=== PATIENT | male | born 1945 | race Caucasian/White ===

== ENCOUNTER 2021-03-13 11:02 | Emergency (ER) | payer MEDICARE ==
[~2021-03-13] VITALS: Ht 170.2 cm; Wt 111.0 kg
--- NOTE | 2021-03-13 11:29 | PHYS DOC ---
Past History Additional Past Medical Histor: obesity, lymphedema. R shoulder dislocation, urinary reten/BPH/montano Past Surgical History: Other Additional Past Surgical Histo: cataracts, shoulder surgery General Adult EDM: Chief Complaint: PENIS PROBLEM HPI: HPI: 75-year-old male [facility]. The patient has a chronic indwelling Montano catheter and an existing chronic wound of the penis. It has been bothering him more lately and he was complaining about it today so they called EMS. Patient tells me that he sometimes gets xerogel and this typically helps with the pain. He does not member the last time he had that. He is unable to walk and does not move his legs at baseline. He does not remember the last time his catheter was changed. He has no other complaints at this time. Review of Systems: Review of Systems: Constitutional: Denies fever or chills Eyes: Denies change in visual acuity HENT: Denies nasal congestion or sore throat Respiratory: Denies cough or shortness of breath Cardiovascular: Denies chest pain or edema GI: Denies abdominal pain, nausea, vomiting, bloody stools or diarrhea : Penis pain Musculoskeletal: Denies back pain or joint pain Integument: Denies rash Neurologic: Denies headache, focal weakness or sensory changes Endocrine: Denies polyuria or polydipsia Lymphatic: Denies swollen glands Psychiatric: Denies depression or anxiety Allergies: Allergies: Allergies Coded Allergies Type Severity Reaction Last Updated Verified No Known Drug Allergies 03/13/21 No Physical Exam: PE: Constitutional: Well developed, well nourished, no acute distress, non-toxic appearance. [] HENT: Normocephalic, atraumatic, bilateral external ears normal, oropharynx moist, no oral exudates, nose normal. [] Eyes: PERRLA, EOMI, conjunctiva normal, no discharge. [] Neck: Normal range of motion, no tenderness, supple, no stridor. [] Cardiovascular:Heart rate regular rhythm, no murmur [] Lungs & Thorax: Bilateral breath sounds clear to auscultation [] Abdomen: Bowel sounds normal, soft, no tenderness, no masses, no pulsatile masses. [] Skin: Warm, dry, no erythema, no rash. [] Back: No tenderness, no CVA tenderness. [] Extremities: No tenderness, no cyanosis, no clubbing, ROM intact, no edema. [] Neurologic: Alert and oriented X 3, normal motor function, normal sensory function, no focal deficits noted. [] Psychologic: Affect normal, judgement normal, mood normal. : Deformed, incomplete penis with 5 mm raw area where the catheter to place against the side of the urethra. [] Current Patient Data: Vital Signs: Vital Signs Date Time Temp Pulse Resp B/P (MAP) Pulse Ox O2 Delivery O2 Flow Rate FiO2 03/13/21 11:08 98.5 86 18 140/89 (106) 96 EKG: EKG: [] Radiology/Procedures: Radiology/Procedures: [] Heart Score: C/O Chest Pain: N/A Risk Factors: Risk Factors: DM, Current or recent (<one month) smoker, HTN, HLP, family history of CAD, obesity. Risk Scores: Score 0 - 3: 2.5% MACE over next 6 weeks - Discharge Home Score 4 - 6: 20.3% MACE over next 6 weeks - Admit for Clinical Observation Score 7 - 10: 72.7% MACE over next 6 weeks - Early Invasive Strategies Course & Med Decision Making: Course & Med Decision Making Pertinent Labs and Imaging studies reviewed. (See chart for details) We will try Urojet lidocaine gel as well as barrier cream for the area of rawness. UA is pending. Urinalysis is positive for nitrate but few bacteria. Given his indwelling catheter will wait for culture. I would not treat him at this time. We did treat the patient's symptoms and adjusted the location of his catheter so that he is not resting on the same area. He is stable for discharge at this time. [] Dragon Disclaimer: Dragon Disclaimer: This electronic medical record was generated, in whole or in part, using a voice recognition dictation system. Departure Departure: Impression: Primary Impression: Penis pain Additional Impression: Montano catheter problem Disposition: HOME / SELF CARE / HOMELESS Condition: IMPROVED Patient Instructions: Montano Catheter Care, Adult CRUZ HARDING DO Mar 13, 2021 11:29
[2021-03-13] MEDS ORDERED: LIDOCAINE 2% JELLY 6ML IN APPLICATOR. MM ONE (11:45)
[2021-03-13 12:27] LABS: AMORPHOUS SEDIMENT,UR PRESENT /HPF; BACTERIA,URINE FEW /HPF (0-FEW); BILIRUBIN,URINE NEG (NEG); CLARITY,URINE CLEAR; COLOR,URINE YELLOW; GLUCOSE,URINE NEG (NEG); SQUAMOUS EPITHELIAL CELL,UR OCC /LPF; UROBILINOGEN,URINE 0.2 mg/dL (0.2 mg/dL)
[2021-03-13 12:28] LABS: NITRITE,URINE POS (NEG)
[2021-03-13 13:00] VITALS: BP 136/76
== END 2021-03-13 16:55 | disposition home or self-care (01) ==
LOC: ER 11:02
DX: T83.091A Other mechanical complication of indwelling urethral catheter, initial encounter (principal); N48.89 Other specified disorders of penis
CPT/HCPCS: 51702; 81001; 87086; 99284-25

== ENCOUNTER 2021-07-17 16:22 | Emergency (ER) | payer MEDICARE ==
[~2021-07-17] VITALS: Ht 170.2 cm; Wt 106.8 kg
[2021-07-17 16:30] VITALS: BP 136/70
[2021-07-17] MEDS ORDERED: KETOROLAC 60 MG/2 ML VIAL. IM ONE (16:45)
--- NOTE | 2021-07-17 17:14 | PHYS DOC ---
Past History Additional Past Medical Histor: obesity, lymphedema. R shoulder dislocation, urinary reten/BPH/montano (MIGNON AGUILAR) Past Surgical History: Other Additional Past Surgical Histo: cataracts, shoulder surgery (MIGNON AGUILAR) Alcohol Use: Sober (MIGNON AGUILAR) General Adult EDM: Chief Complaint: URINE CATHETER PROBLEM HPI: HPI: Patient is a 76 year old male who presents with urinary catheter issue. He has had the catheter in for 4-5 days, but it has not drained at all today. He reports suprapubic pain, but denies all other complaints. (MIGNON AGUILAR) Review of Systems: Review of Systems: ROS negative or noncontributory except as mentioned in HPI. (MIGNON AGUILAR) Current Medications: Current Meds: Current Medications Medications (Trade) Dose Ordered Sig/Rebeca Start Time Stop Time Status Last Admin Dose Admin Ketorolac Tromethamine (Toradol Im) 60 mg 1X ONCE 07/17/21 16:45 07/17/21 16:46 DC (MIGNON AGUILAR) Allergies: Allergies: Allergies Coded Allergies Type Severity Reaction Last Updated Verified No Known Drug Allergies 03/13/21 No (MIGNON AGUILAR) Physical Exam: PE: Constitutional: Well developed, well nourished, no acute distress, non-toxic appearance. HENT: Normocephalic, atraumatic, bilateral external ears normal, nose normal. Eyes: EOMI, conjunctiva normal, no discharge. Neck: Normal range of motion, no stridor. Abdomen: Bowel sounds normal, soft, suprapubic tenderness without rebound tenderness, no masses, no pulsatile masses. Skin: Warm, dry, no erythema, no rash. Genital: Buried penis with erythema and moisture. No areas of fluctuance or induration. Extremities: No tenderness, no cyanosis, no clubbing, ROM intact, no edema. Neurologic: Alert and oriented x4, no focal deficits noted. (MIGNON AGUILAR) Current Patient Data: Vital Signs: Vital Signs Date Time Temp Pulse Resp B/P (MAP) Pulse Ox O2 Delivery O2 Flow Rate FiO2 07/17/21 16:30 98.5 87 16 136/70 (92) 94 Nasal Cannula 3.0 (MIGNON AGUILAR) Heart Score: C/O Chest Pain: No (MIGNON AGUILAR) Course & Med Decision Making: Course & Med Decision Making Pertinent Labs and Imaging studies reviewed. (See chart for details) Patient is a 76-year-old male who presents to the emergency department for a urinary catheter that is stopped draining. Work-up today will include replacement of the catheter as well as urinalysis. Toradol IM was offered for pain control. Upon catheter replacement, 700 cc of urine was removed from the bladder. Patient is much more comfortable. (MIGNON AGUILAR) Dragon Disclaimer: Dragon Disclaimer: This electronic medical record was generated, in whole or in part, using a voice recognition dictation system. (MIGNON AGUILAR) Attending Co-Sign The patient was seen and interviewed as well as examined at the bedside. The chart was reviewed. The case was discussed. Agree with the plan of care. (CRUZ HARDING DO) Departure Departure: Impression: Primary Impression: Urinary tract infection Qualified Codes: N30.00 - Acute cystitis without hematuria Additional Impression: Encounter for Montano catheter replacement Disposition: HOME / SELF CARE / HOMELESS Condition: IMPROVED Referrals: ISAI CASTANEDA MD (PCP) Patient Instructions: Montano Catheter Care, Adult, Urinary Tract Infection, [id number] Additional Instructions: EMERGENCY DEPARTMENT GENERAL DISCHARGE INSTRUCTIONS Thank you for coming to [facility] (ED) today and trusting us with you care. We trust that you had a positive experience in our Emergency Department. If you wish to speak to the department management, you may call the director at [phone]. YOUR FOLLOW UP INSTRUCTIONS ARE FOLLOWS: 1. Follow up with your primary care doctor. If you do not have a primary doctor, please ask for a resource list of physicians or clinics that may be able to assist you with follow up care. 2. The emergency provider has interpreted your imaging studies, if any were ordered. The radiology imaging scheduler also reviewed them. If there is a change in the findings, you will be notified in 48 hours when at all possible. 3. If a lab test or culture has been done, your results will be reviewed and you will be notified if you need a change in treatment. 4. Follow instructions verbalized to you and refer to the printouts if needed. ADDITIONAL INSTRUCTIONS AND INFORMATION: 1. Your care today has been supervised by a physician who is specially trained in emergency care. Many problems require more than one evaluation for a complete diagnosis and treatment. We recommend that you schedule your follow up appointment as recommended to ensure complete treatment of you illness or injury. If you are unable to obtain follow up care and continue to have a problem, or if your condition worsens, we recommend that you return to the ED. 2. We are not able to safely determine your condition over the phone nor are we able to give sound medical advice over the phone. For these safety reasons, if you call for medical advice we will ask you to come to the ED for further evaluation. 3. If you have any questions regarding these discharge instructions please call the ED at [phone]. SAFETY INFORMATION: In the interest of safety, wellness, and injury prevention; we encourage you to wear your seat belt, if you smoke; quite smoking, and we encourage family to use a protective helmet for bicycling and other sporting events that present an increased risk for head injury. IF YOUR SYMPTOMS WORSEN OR NEW SYMPTOMS DEVELOP, OR YOU HAVE CONCERNS ABOUT YOUR CONDITION; OR IF YOUR CONDITION WORSENS WHILE YOU ARE WAITING FOR YOUR FOLLOW UP APPOINTMENT; EITHER CONTACT YOUR PRIMARY CARE DOCTOR, THE PHYSICIAN WHOSE NAME AND NUMBER YOU WERE GIVEN, OR RETURN TO THE ED IMMEDIATELY. Scripts Cefuroxime Axetil (CEFUROXIME) 500 Mg Tablet 1 TAB PO BID for UTI for 10 Days, #20 TAB 0 Refills Prov: MIGNON AGUILAR 07/17/21 MIGNON AGUILAR Jul 17, 2021 17:14 CRUZ HARDING DO Jul 18, 2021 06:32
[2021-07-17 17:31] LABS: BILIRUBIN,URINE NEG (NEG); CLARITY,URINE CLOUDY; COLOR,URINE YELLOW; GLUCOSE,URINE NEG (NEG)
[2021-07-17 17:32] LABS: BACTERIA,URINE MOD /HPF (0-FEW); NITRITE,URINE POS (NEG); SQUAMOUS EPITHELIAL CELL,UR FEW /LPF; UROBILINOGEN,URINE 0.2 mg/dL (0.2 mg/dL); WBC,URINE >40 /HPF (0-4)
[2021-07-17] MEDS ORDERED: CEFU500T46 PO (17:51)
== END 2021-07-17 17:59 | disposition home or self-care (01) ==
LOC: ER 16:22
DX: T83.098A Other mechanical complication of other urinary catheter, initial encounter (principal); N30.00 Acute cystitis without hematuria; E66.9 Obesity, unspecified; Z68.36 Body mass index [BMI] 36.0-36.9, adult
CPT/HCPCS: 51702; 81001; 87077; 87086; 87186; 99284